=== PATIENT | male | born 1975 | race Two or more races ===

== ENCOUNTER 2020-10-09 14:37 | Emergency (ER) | payer MEDICAID ==
[~2020-10-09] VITALS: Ht 182.9 cm; Wt 140.6 kg
[2020-10-09 15:49] VITALS: BP 124/78
== END 2020-10-09 15:50 | disposition home or self-care (01) ==
LOC: ER 14:37
DX: M54.2 Cervicalgia (principal)
CPT/HCPCS: 70490